=== PATIENT | female | born 1970 | race African-American/Black ===

== ENCOUNTER 2018-04-10 06:30 | Day surgery (SDC) | payer OTHER ==
[~2018-04-10 06:30] MED LIST: OMEP20TA8 PO
[2018-04-10 07:03] LABS: U PREG PATIENT NEGATIVE (NEG)
[2018-04-10] MEDS ORDERED: ceFAZolin SODIUM 3 GM in IV DEXTROSE 5% 100ML 100 ML IV PRN (07:31)
[2018-04-10] MEDS ORDERED: MIDAZOLAM HCL/PF 2 MG/2 ML VIAL. ONE (07:42)
[2018-04-10] MEDS ORDERED: SUCCINYLCHOLINE 200 MG/10 ML VIAL. ONE (07:42)
[2018-04-10] MEDS ORDERED: fentaNYL PF VIAL 100 MCG/2 ML VIAL ONE (07:43)
[2018-04-10] MEDS: IV RINGERS,LACTATED 1000ML 1,000 ML IV SCH (07:45)
[2018-04-10 07:52] LABS: BASO # 0.1 x10^3/uL (0.0-0.2); BASO % 1 % (0-3); EOS # 0.1 x10^3/uL (0.0-0.7); EOS % 2 % (0-3); HEMOGLOBIN 9.8 g/dL (12.0-15.5); LYMPH # 1.5 x10^3/uL (1.0-4.8); LYMPH % 19 % (24-48); MEAN CORPUSCULAR HEMOGLOBIN 23 pg (25-35); MEAN CORPUSCULAR HGB CONC 32 g/dL (31-37); MEAN CORPUSCULAR VOLUME 73 fL (79-100); MONO # 0.8 x10^3/uL (0.0-1.1); MONO % 11 % (0-9); NEUT # 5.3 x10^3uL (1.8-7.7); NEUT % 68 % (31-73); PLATELET COUNT 371 x10^3/uL (140-400); RED BLOOD COUNT 4.27 x10^6/uL (3.50-5.40); RED CELL DISTRIBUTION WIDTH 24.5 % (11.5-14.5); WHITE BLOOD COUNT 7.9 x10^3/uL (4.0-11.0)
[2018-04-10] MEDS ORDERED: PROPOFOL 20 ML IV ONE (08:08)
[2018-04-10] MEDS ORDERED: ONDANSETRON PF 4 MG/2 ML VIAL. ONE (08:08)
[2018-04-10] MEDS ORDERED: LIDOCAINE 2% PF Vial for OR 5 ML VIAL. ONE (08:08)
[2018-04-10] MEDS ORDERED: DEXAMETHASONE SOD PHOS 20 MG/5 ML VIAL. ONE (08:08)
--- NOTE | 2018-04-10 08:25 | PDOC ---
GENERAL General: 47 yrs old female scheduled for D&C for Dysfunctional Uterine Bleeding. VITAL SIGNS Vital Signs: Vital Signs Date Time Temp Pulse Resp B/P (MAP) Pulse Ox O2 Delivery O2 Flow Rate FiO2 04/10/18 07:37 97.5 73 16 117/73 97 Room Air 97.5 ALLERGIES Allergies: Allergies Coded Allergies Type Severity Reaction Last Updated Verified No Known Drug Allergies 04/09/18 No MEDS Medications: Current Medications Medications (Trade) Dose Ordered Sig/Maci Start Time Stop Time Status Last Admin Dose Admin Cefazolin Sodium 3 gm/Dextrose 100 ml @ 200 mls/hr 1X PREOP PRN 04/10/18 07:31 04/11/18 07:30 Cefazolin Sodium/ Dextrose 50 ml @ 100 mls/hr 1X PREOP PRN 04/10/18 06:00 04/10/18 18:00 Cancel Dexamethasone Sodium Phosphate (Decadron) 20 mg STK-MED ONCE 04/10/18 08:08 04/10/18 08:10 DC Fentanyl Citrate (Fentanyl 2ml Vial) 100 mcg STK-MED ONCE 04/10/18 07:43 04/10/18 07:45 DC Lidocaine HCl (Lidocaine Pf 2% Vial) 5 ml STK-MED ONCE 04/10/18 08:08 04/10/18 08:10 DC Midazolam HCl (Versed) 2 mg STK-MED ONCE 04/10/18 07:42 04/10/18 07:44 DC Ondansetron HCl (Zofran) 4 mg STK-MED ONCE 04/10/18 08:08 04/10/18 08:10 DC Propofol 20 ml @ As Directed STK-MED ONCE 04/10/18 08:08 04/10/18 08:10 DC Ringer's Solution 1,000 ml @ 75 mls/hr [id number] 04/10/18 07:45 04/10/18 07:45 75 MLS/HR Succinylcholine Chloride (Anectine) 200 mg STK-MED ONCE 04/10/18 07:42 04/10/18 07:45 DC LAB Lab: Laboratory Tests Test 04/10/18 06:50 04/10/18 07:21 Urine Test Negative (NEG) White Blood Count 7.9 x10^3/uL (4.0-11.0) Red Blood Count 4.27 x10^6/uL (3.50-5.40) Hemoglobin 9.8 g/dL (12.0-15.5) Hematocrit 31.0 % (36.0-47.0) Mean Corpuscular Volume 73 fL (79-100) Mean Corpuscular Hemoglobin 23 pg (25-35) Mean Corpuscular Hemoglobin Concent 32 g/dL (31-37) Red Cell Distribution Width 24.5 % (11.5-14.5) Platelet Count 371 x10^3/uL (140-400) Neutrophils (%) (Auto) 68 % (31-73) Lymphocytes (%) (Auto) 19 % (24-48) Monocytes (%) (Auto) 11 % (0-9) Eosinophils (%) (Auto) 2 % (0-3) Basophils (%) (Auto) 1 % (0-3) Neutrophils # (Auto) 5.3 x10^3uL (1.8-7.7) Lymphocytes # (Auto) 1.5 x10^3/uL (1.0-4.8) Monocytes # (Auto) 0.8 x10^3/uL (0.0-1.1) Eosinophils # (Auto) 0.1 x10^3/uL (0.0-0.7) Basophils # (Auto) 0.1 x10^3/uL (0.0-0.2) ASSESSMENT & PLAN A&P Under GA Dilatation and Curettage done.EBL 10 cc. SUBHASH LUI MD Apr 10, 2018 08:25
--- NOTE | 2018-04-10 09:00 | OP ---
DATE OF SURGERY: PREOPERATIVE DIAGNOSIS: Dysfunctional uterine bleeding. POSTOPERATIVE DIAGNOSIS: Dysfunctional uterine bleeding. OPERATION PERFORMED: Diagnostic D and C. DESCRIPTION OF PROCEDURE: The patient was taken to the operating room. Under general anesthesia, she was placed in a dorsal lithotomy position. Perineum was prepped and draped in the usual manner. Anterior lip of the cervix held with a tenaculum. Uterine sound is used to measure the length of the uterine cavity, which appears to be about 9.5 cm and cervix was dilated first, a medium-sized curette is used to curette the endometrial cavity. All the curettings obtained were subjected for pathological examination. At the end of the curettage, speculum tenaculum is removed. The patient was sent to the recovery room in good condition. No complications encountered at time of the procedure. Estimated blood loss about 10 mL. Postoperative condition is stable. She will be followed in the office in 2 weeks for further care and treatment. SUBHASH LUI MD DR: OTIS/nts JOB#: [id number] / [id number]
[2018-04-10 09:15] VITALS: BP 126/84
[2018-04-10 10:14] LABS: PLT ESTIMATE ADEQUATE (ADEQUATE)
[2018-04-10 10:19] LABS: ANISOCYTOSIS MOD; HYPOCHROMIA MOD; MICROCYTOSIS PRESENT
--- NOTE | 2018-04-12 09:13 | PATHOLOGY ---
[facility] Accession Number: [id number] . 01 Material submitted: . ENDOMETRIAL CURETTINGS . 01 Clinical history: . Irregular bleeding (DUB) . 02 Diagnosis: Endometrial curettings: - Segments of secretory endometrium showing glandular/stromal breakdown. . (JPM/at;04/11/2018) QTA/04/11/2018 . 02 Comment: Sections of the endometrial curettings reveal blood clot containing segments of secretory endometrium showing glandular/stromal breakdown. There are also segments of lower uterine segment and endocervical mucosa showing squamous metaplasia and strips of benign endocervical and squamous epithelium. There is no evidence of hyperplasia or malignancy. . (JPM/at;04/11/2018) . 02 Electronically signed: . Rafa Smyth MD, Pathologist NPI- [id number] . 01 Gross description: . Received in formalin labeled "[place], Pallavi, endometrial curettings," is blood-tinged mucoid material containing small fragments of bass membranous tissue, measuring 4.5 x 2.6 x 0.9 cm in aggregate dimensions. The specimen is filtered and submitted entirely in cassette A1 and A2. (TSD; 04/10/2018) TOB/TOB . 02 Pathologist provided ICD-10: N85.9, N93.9 . 02 CPT . 855851 Specimen Comment: A courtesy copy of this report has been sent to Specimen Comment: [phone], . Specimen Comment: Report sent to / DR BLAS Performed at: [address], [place], [place] [id number] MD Rashid Beckham MD Phone: [phone] Performed at: 02 [facility] [address] [place], [place] [id number] MD Rafa Smyth MD Phone: [phone]
== END 2018-04-10 09:20 | disposition home or self-care (01) ==
LOC: SURG 06:30
PROVIDERS: ATTEND Obstetrics & Gynecology
DX: N85.8 Other specified noninflammatory disorders of uterus (principal); N93.8 Other specified abnormal uterine and vaginal bleeding
CPT/HCPCS: 36415; 58120; 81025; 85025; 88305; A7015; J0330; J1100; J2001; J2250; J2405; J2704; J3010; J7120

== ENCOUNTER → 2020-10-06 | Outpatient (CLI) | payer OTHER ==
--- NOTE | 2020-10-06 13:35 | RAD ---
EXAM: ULTRASOUND PELVIS INDICATION: Menorrhagia. COMPARISON: None. TECHNIQUE: Transabdominal sonographic imaging of the pelvis was performed. FINDINGS: The uterus measures 14.4 x 11.5 x 8.8 cm. There are multiple uterine fibroids, the largest of which measure 4.9 cm within the anterior uterine fundus and 3.8 cm within the left lateral uterine fundus. The ovaries are obscured. The endometrial stripe measures 4.5 mm in thickness. There is no p elvic free fluid. IMPRESSION: 1. Enlarged uterus containing multiple fibroids, the largest of which measures 4.9 cm. 2. Normal endometrial thickness of 4.5 mm. 3. Obscured ovaries. Electronically signed by: Trinidad Staley MD (10/06/2020 1:33 PM) [id number]
== END ==
LOC: US 13:20
PROVIDERS: ATTEND Obstetrics & Gynecology
DX: D25.9 Leiomyoma of uterus, unspecified (principal); N85.2 Hypertrophy of uterus; N92.0 Excessive and frequent menstruation with regular cycle
CPT/HCPCS: 76856

== ENCOUNTER → 2020-10-20 | Outpatient (CLI) | payer OTHER ==
[~2020-10-20] MED LIST changes: +IBUP-1060 PO; +OXYC1TAB15 PO
== END ==
LOC: LAB 10:43
PROVIDERS: ATTEND Obstetrics & Gynecology
DX: Z01.812 Encounter for preprocedural laboratory examination (principal); Z20.822 Contact with and (suspected) exposure to COVID-19; N92.0 Excessive and frequent menstruation with regular cycle
CPT/HCPCS: U0003; U0005

== ENCOUNTER 2020-10-22 08:29 | Day surgery (SDC) | payer OTHER ==
[~2020-10-22] VITALS: Ht 165.1 cm; Wt 150.5 kg
[~2020-10-22 08:29] MED LIST changes: +DEXAMETHASONE SOD PHOS 4 MG/ML VIAL ONE; -IBUP-1060 PO; +LIDOCAINE 2% PF 5 ML VIAL. ONE; +MIDAZOLAM HCL/PF 2 MG/2 ML VIAL. ONE; +ONDANSETRON PF 4 MG/2 ML VIAL. ONE; -OXYC1TAB15 PO; +PROPOFOL 10 MG/ML (20ML) VIAL. IV ONE; +fentaNYL PF VIAL 100 MCG/2 ML VIAL ONE
[2020-10-22 09:02] VITALS: BP 120/72
--- NOTE | 2020-10-22 09:09 | PDOC1 ---
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 The pt underwent an u/s (10/06/20) that revealed: The uterus measures 14.4 x 11.5 x 8.8 cm. There are multiple uterine fibroids, the largest of which measure 4.9 cm within the anterior uterine fundus and 3.8 cm within the left lateral uterine fundus. The ovaries are obscured. The endometrial stripe measures 4.5 mm in thickness. There is no pelvic free fluid. The pt has tried pain management, Depo, OCP's and couple of D&C in the past. None have seemed to help. In the past hysterectomy was discussed with the pt, but it was ultimately decided not to be performed. Discussed tx options of her bleeding issues. Explained that an Ablation may be less morbid than a hysterectomy. PMH: GERD, Thyroid PSH: BTL Meds: pantoprazole, ondansetron, HCTZ, ferrous sulfate, ZyrTEC, Senna All: NKDA OBHx: TSVD x 2 (one set of twins) Engineering Systems Analyst: Periods : Heavy/clotting, cramping. control BTL. SH: no tob, rare EtOH FH: noncontributory Allergies: Coded Allergies: No Known Drug Allergies (Unverified , 04/09/18) Physical Exam: Vital Signs: Vital Signs Date Time Temp Pulse Resp B/P (MAP) Pulse Ox O2 Delivery O2 Flow Rate FiO2 10/22/20 09:07 97.7 71 18 120/72 99 Room Air 97.7 PE: GENERAL: No apparent distress. Alert and oriented. HEENT: Head normocephalic, atraumatic. NECK: Supple LUNGS: Clear to auscultation. HEART: RRR, S1, S2 present, pulses intact ABDOMEN: Soft, positive bowel sounds. EXTREMITIES: No cyanosis or edema. NEUROLOGIC: Normal speech, normal tone PSYCHIATRIC: Normal affect, normal mood. SKIN: No ulceration. Labs: Laboratory Tests Test 10/22/20 07:58 POC Urine HCG, Qualitative Hcg negative (Negative) Assessment & Plan: A/P 50y with menorrhagia, dysmenorrhea, and fibroids 1.) Menorrhagia - for last 10 yrs. Scheduled for Novasure ablation. 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
[2020-10-22 09:19] LABS: BASO # 0.1 x10^3/uL (0.0-0.2); BASO % 2 % (0-3); EOS # 0.1 x10^3/uL (0.0-0.7); EOS % 2 % (0-3); HEMATOCRIT 33.5 % (36.0-47.0); HEMOGLOBIN 10.9 g/dL (12.0-15.5); LYMPH # 2.1 x10^3/uL (1.0-4.8); LYMPH % 35 % (24-48); MEAN CORPUSCULAR HEMOGLOBIN 25 pg (25-35); MEAN CORPUSCULAR HGB CONC 33 g/dL (31-37); MEAN CORPUSCULAR VOLUME 75 fL (79-100); MONO # 0.5 x10^3/uL (0.0-1.1); MONO % 9 % (0-9); NEUT # 3.2 x10^3/uL (1.8-7.7); NEUT % 53 % (31-73); PLATELET COUNT 378 x10^3/uL (140-400); RED BLOOD COUNT 4.45 x10^6/uL (3.50-5.40); RED CELL DISTRIBUTION WIDTH 19.8 % (11.5-14.5)
[2020-10-22] MEDS ORDERED: IV RINGERS,LACTATED 1000ML 1,000 ML IV SCH ×2 (09:30→10:30)
[2020-10-22] MEDS ORDERED: KETOROLAC 30 MG/ML VIAL. ONE (09:52)
[2020-10-22] MEDS ORDERED: SEVOFLURANE 61 TO 120 MINUTES. IH ONE (09:52)
[2020-10-22] MEDS ORDERED: LIDOCAINE 2% PF 5 ML VIAL. ONE (10:08)
[2020-10-22] MEDS ORDERED: IBUP-1060 PO (10:23)
[2020-10-22] MEDS ORDERED: OXYC1TAB15 PO (10:23)
[2020-10-22] MEDS ORDERED: MORPHINE SULFATE 2 MG/ML INJ. IVP PRN (10:30)
[2020-10-22] MEDS ORDERED: HYDROmorphone 2 MG/ML VIAL IVP PRN (10:30)
[2020-10-22] MEDS ORDERED: PROCHLORPERAZINE 10 MG/2 ML VIAL. IVP PRN (10:30)
[2020-10-22] MEDS ORDERED: fentaNYL PF VIAL 100 MCG/2 ML VIAL IVP PRN (10:30)
[2020-10-22] MEDS ORDERED: fentaNYL PF VIAL 100 MCG/2 ML VIAL ONE (10:47)
[2020-10-22] MEDS: fentaNYL PF VIAL 100 MCG/2 ML VIAL IVP PRN ×2 (10:52→11:12)
[2020-10-22] MEDS ORDERED: oxyCODONE/APAP 5/325 1 TAB TABLET PO ONE (11:00)
[2020-10-22 11:41] VITALS: BP 122/73
--- NOTE | 2020-10-22 12:01 | PDOC4 ---
OPERATIVE NOTE: PreOp Dx: 1.) Menorrhagia, 2.) Dysmenorrhea, 3.) Fibroids PostOp Dx: same Procedure: H/S, D&C, Novasure ablation Surgeon: Christina Chapamn Anesthesia: LMA EBL: 10 cc Fluids: 500 cc UOP: 200 cc Complication: none Findings: benign appearing endometrium, 12 cm sound dimensions 6.5 cm length and 2.6 cm width Path: endometrial curetting KOBY CHAPMAN MD Oct 22, 2020 12:01
--- NOTE | 2020-10-22 15:47 | OP ---
DATE OF SURGERY: 10/22/2020 PREOPERATIVE DIAGNOSES: 1. Menorrhagia. 2. Dysmenorrhea. 3. Fibroids. POSTOPERATIVE DIAGNOSES: 1. Menorrhagia. 2. Dysmenorrhea. 3. Fibroids. PROCEDURES: Hysteroscopy, dilation and curettage with NovaSure ablation. SURGEON: Napoleon Brown MD ANESTHESIA: LMA. ESTIMATED BLOOD LOSS: 10 mL. FLUIDS: 500 mL. URINE OUTPUT: 200 mL. COMPLICATIONS: None. FINDINGS: Benign-appearing endometrium. Uterus sounded to 12 cm with a uterine cavity of dimensions of 6.5 cm of the length, width of 2.6 cm. PATHOLOGY: Endometrial curetting. DESCRIPTION OF PROCEDURE: The patient was taken to the operating room where LMA was placed without difficulty. The patient was prepped and draped in a normal sterile fashion. A posterior weighted speculum was placed in the patient's vagina and a right angle retractor was used to visualize the anterior lip of the cervix, which was then grasped with a single tooth tenaculum. The cervix was sounded to be roughly 5 cm. When the sound was placed in the uterine fundus, it was roughly 12 cm. At that point, the hysteroscope was placed. Visualization of the endometrium revealed to be benign. The hysteroscope was then removed. Curetting was performed in all 4 quadrants. The specimen was then sent to Pathology. At that point, the NovaSure was then placed in the endometrial cavity and opened. The width was found to be 2.6 cm. Both the length of 6.5 cm and the width of 2.6 cm were placed in the NovaSure tower. At that point, the device was activated and ablation occurred. Once completed, the NovaSure was removed and the hysteroscope was replaced showing good ablative tissue throughout the endometrium. There did appear to be some areas near the fundus that had not been well ablated, but at least 80% of the tissue looked like it had been transformed by the ablation. At that point, the hysteroscope was removed. The tenaculum was removed. Good hemostasis was noted. The patient was brought to the recovery room in stable condition. ANITA/ORION/AVERY DR: Bridgette TID: [id number]
--- NOTE | 2020-10-26 09:11 | PATHOLOGY ---
[facility] Accession Number: [id number] . 01 Material submitted: . endometrium - ENDOMETRIAL CURETTINGS . 01 Clinical history: . HYSTEROSCOPY MENORRAGHIA . 02 Diagnosis: Endometrial curettings: - Proliferative endometrium. (CONNIE:viviana; 10/25/2020) [facility] 10/25/2020 1752 Local . 02 Comment: There is no atypia or evidence of malignancy. (CONNIEM:viviana; 10/25/2020) . 02 Electronically signed: . Rafa Smyth MD, Pathologist NPI- [id number] . 01 Gross description: . Received in formalin labeled "[place], Pallavi, endometrial curettings" is a 2.5 x 0.6 x 0.1 cm aggregate of red-brown friable soft tissue fragments. The specimen is submitted entirely in A1. ([facility]; 10/23/2020) [facility] 10/23/2020 1118 Local . 02 Pathologist provided ICD-10: N92.0 . 02 CPT . 329495 Specimen Comment: A courtesy copy of this report has been sent to [phone] Specimen Comment: [phone] Specimen Comment: Report sent to / DR BLAS Performed at: 01 [facility] [address], [place] [id number] MD Rafa Rodriguez MD Phone: [phone] Performed at: 02 [facility] [address] [place], [place] [id number] MD Rafa Smyth MD Phone: [phone]
== END 2020-10-22 12:22 | disposition home or self-care (01) ==
LOC: SURG 08:29
PROVIDERS: ATTEND Obstetrics & Gynecology
DX: N92.0 Excessive and frequent menstruation with regular cycle (principal); N94.6 Dysmenorrhea, unspecified; D25.9 Leiomyoma of uterus, unspecified; K21.9 Gastro-esophageal reflux disease without esophagitis; M19.90 Unspecified osteoarthritis, unspecified site; E66.9 Obesity, unspecified; Z79.899 Other long term (current) drug therapy; Z98.890 Other specified postprocedural states; Z72.89 Other problems related to lifestyle; Z20.822 Contact with and (suspected) exposure to COVID-19
CPT/HCPCS: 36415; 58563; 81025; 85025; 86850; 86900; 86901; 87426; A4930; J1100; J1885; J2250; J2405; J2704; J3010